=== PATIENT | male | born 1980 | race Caucasian/White ===

== ENCOUNTER 2017-08-08 10:25 | Day surgery (SDC) | payer BC ==
[~2017-08-08] VITALS: Ht 182.9 cm; Wt 102.8 kg
[2017-08-08 11:30] VITALS: BP 125/74; PULSE 49; TEMP 98
[2017-08-08] MEDS ORDERED: LEXAPRO20 MG PO (12:17)
[2017-08-08] MEDS ORDERED: PRINIVIL20 MG PO (12:18)
[2017-08-08] MEDS ORDERED: XANAX 0.5MG0.5 MG PO (12:19)
[2017-08-08] MEDS ORDERED: VITAMIN B COMPL1 SGL PO (12:20)
[2017-08-08] MEDS ORDERED: MULTIPLE VITAMI1 TA5 PO (12:22)
[2017-08-08] MEDS ORDERED: OMEGA-3 1000 MG1 CAP PO (12:22)
[2017-08-08] MEDS ORDERED: COLACE 100100 MG/CAP PO (15:03)
[2017-08-08] MEDS ORDERED: MOTRIN 600600 MG/TAB PO (15:03)
[2017-08-08] MEDS ORDERED: PERCOCET 325 MG1 TA2 PO (15:03)
[2017-08-08 15:25] VITALS: BP 112/60; PULSE 61; TEMP 98.5
[2017-08-08 15:40] VITALS: BP 105/60; PULSE 59
[2017-08-08 15:55] VITALS: BP 100/61; PULSE 63
[2017-08-08 16:10] VITALS: BP 101/60; PULSE 54
[2017-08-08 16:40] VITALS: BP 100/56; PULSE 61
== END 2017-08-08 17:30 | disposition home or self-care (01) ==
LOC: SDCO 10:25
DX: K40.20 Bilateral inguinal hernia, without obstruction or gangrene, not specified as recurrent (principal); I10 Essential (primary) hypertension; F41.9 Anxiety disorder, unspecified; E78.5 Hyperlipidemia, unspecified; F17.220 Nicotine dependence, chewing tobacco, uncomplicated; Z83.3 Family history of diabetes mellitus
CPT/HCPCS: A4315; C1781; J0690; J1100; J1885; J2405; J2704; J3010; J7120